=== PATIENT | female | born 1990 | race Caucasian/White ===

== ENCOUNTER 2024-12-25 20:03 | Emergency (ER) | payer BC ==
[2024-12-25] MEDS: GI Cocktail Oral Solution 30 ML PO ONE (21:43)
== END 2024-12-25 21:50 | disposition home or self-care (01) ==
LOC: LB.ED 20:03
DX: R13.10 Dysphagia, unspecified (principal); Z91.013 Allergy to seafood; Z79.84 Long term (current) use of oral hypoglycemic drugs; Z79.890 Hormone replacement therapy
CPT/HCPCS: 70360; 99283; A9270